=== PATIENT | female | born 1940 | race Caucasian/White ===

== ENCOUNTER 2019-07-11 09:01 | Emergency (ER) | payer MEDICARE, OTHER, SELFPAY ==
--- NOTE | ~2019-07-11 | XR_ITS ---
EXAMINATION: XR foot LT min 3V DATE: 07/11/2019 09:43 INDICATION: Inversion injury with lateral right foot pain TECHNIQUE: Dorsoplantar, two oblique and lateral views of the right foot were obtained. COMPARISON: None. FINDINGS: Nondisplaced transverse extra-articular fracture at the proximal right fifth metatarsal within 1.5 cm the proximal articular surface. No other fractures identified. Mild hallux valgus. Chronic osteotomy with resection of the distal half of the right fifth proximal phalanx. 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 Moderate-sized plantar calcaneal spur. IMPRESSION: 1. Nondisplaced extra articular fracture at the proximal metaphyseal region of the right fifth metata rsal Marx fracture. Reviewed, dictated and finalized at location A. IMPRESSION: 1. Nondisplaced extra articular fracture at the proximal metaphyseal region of the right fifth metatarsal Marx fracture.
--- NOTE | ~2019-07-11 | XR_ITS ---
EXAMINATION: XR hip LT min 2V DATE: 07/11/2019 09:43 INDICATION: Posterior left hip pain post fall TECHNIQUE: Anteroposterior , frog leg and cross-table lateral views of the left hip were obtained. COMPARISON: None. FINDINGS: On the frontal view of the left hip there is focal invagination along the medial margin of the tip of the greater trochanter but which appears to demonstrate corticated margins and this more likely resu lts from a small amount of heterotopic/enthesopathic ossification along the margins of the greater tr ochanter rather than nondisplaced avulsion fracture. No other lesions suspicious for fracture identif ied. Minimal left hip osteoarthritis with small marginal osteophyte along the acetabulum but with rel atively preserved joint space. Soft tissues are unremarkable. IMPRESSION: 1. Irregular contour along the tip of the greater trochanter the margins which appear corticated and favor heterotopic/enthesopathic ossification over nondisplaced avulsion fracture. Reviewed, dictated and finalized at location A. IMPRESSION: 1. Irregular contour along the tip of the greater trochanter the margins which appear corticated and favor heterotopic/enthesopathic ossification over nondisp laced avulsion fracture.
--- NOTE | 2019-07-11 09:10 | ED.FALL ---
HPI - Fall General Chief Complaint: Fall Stated Complaint: fall Time Seen by Provider: 07/11/19 09:20 Source: patient and RN notes reviewed Mode of arrival: ambulatory Limitations: no limitations History of Present Illness HPI Narrative: 79-year-old female presents with concern for fall. Reports yesterday her leg fell asleep after sitting in a chair for a long period of time, when she stood up the chair slipped and she fell twisting her right foot and landing on her left hip. She reports right foot pain, reports posterior hip pain. MD complaint: fall Related Data Home Medications Medication Instructions Recorded Confirmed famotidine 40 mg PO DAILY 07/11/19 07/11/19 Allergies Allergy/AdvReac Type Severity Reaction Status Date / Time No Known Allergies Allergy Verified 07/11/19 09:26 Review of Systems Review of Systems: Narrative: CONSTITUTIONAL: Denies malaise, chills, sweats, or fever. CARDIOVASCULAR: Denies chest pain, palpitations, or edema. RESPIRATORY: Denies dyspnea. SKIN: Reports bruising to the right foot, denies bruising redness to the hip or back MUSCULOSKELETAL: Reports right foot pain, posterior left hip pain NEUROLOGIC: Denies numbness, weakness. All systems reviewed & are unremarkable except as noted in HPI and below PMFSH Comments At time of signature, agree with nursing past medical, surgical, social and family history. There is no relevant family history pertinent to the presenting complaint Exam Narrative: Exam Narrative: GENERAL: Well-appearing, well-nourished, and in no acute distress. HEAD: Normocephalic, atraumatic. EYES: PERRLA, conjunctivae clear NECK: Supple. CHEST: Speaks in full sentences. No respiratory distress. HEART: Regular rate and rhythm. Normal and equal peripheral pulses. EXTREMITIES: Right foot, digits of right foot has normal strength and sensation, small lateral edema, normal range of motion. 5/5 strength with ankle and digit flexion and extension. Normal sensation with sensitivity to light touch and pain. No open wounds, no skin tenting, no devitalized tissue or atrophy, no trophic changes, mild lateral ecchymosis, no obvious deformity, alignment normal, no point tenderness, nearby joints and structures intact. Distal pulses palpable and equal bilaterally, skin warm, dry, pink. Capillary refill less than 3 seconds. Left hip has normal strength and sensation, normal range of motion. 5/5 strength with hip flexion and extension. Normal sensation with sensitivity to light touch and pain. No open wounds, no skin tenting, no devitalized tissue or atrophy, no trophic changes, no ecchymosis, no obvious deformity, alignment normal, no point tenderness, nearby joints and structures intact. Distal pulses palpable and equal bilaterally, skin warm, dry, pink. Capillary refill less than 3 seconds. SKIN: Warm, dry, no rash. NEURO: Alert and oriented x3. PSYCH: Normal mood and affect Course Course Emergency Course: Patient is aware of diagnosis, understands and agrees to treatment plan. Anticipatory guidance given. Patient agrees to follow-up as directed and is aware of reasons to seek care at the emergency department. Portions of this record may have been created with voice recognition software Vital Signs Vital signs: Vital Signs Temperature 99.1 F 07/11/19 09:14 Pulse Rate 79 07/11/19 09:14 Respiratory Rate 20 07/11/19 09:14 Blood Pressure 127/64 07/11/19 09:14 Pulse Oximetry 98 07/11/19 09:14 Temperature 99.1 F 07/11/19 09:14 Pulse Rate 79 07/11/19 09:14 Respiratory Rate 20 07/11/19 09:14 Blood Pressure 127/64 07/11/19 09:14 Pulse Oximetry 98 07/11/19 09:14 Reviewed. MDM - Fall MDM Narrative Medical decision making narrative: Patients injury and pain is consistent with musculoskeletal etiology. No signs of neurological or vascular compromise on exam. Compartments and tissues are soft without signs of compartment syndrome. Patient's posterior
[2019-07-11 09:14] VITALS: BP 127/64; PULSE 79; RESP 20; TEMP 37.3; O2SAT 98
--- NOTE | 2019-07-11 11:39 | PCDIET ---
PT DECLINES WHEELCHAIR TO RADIOLOGY
== END 2019-07-11 10:21 | disposition home or self-care (01) ==
PROVIDERS: Emergency Provider Nurse Practitioner; PCP Internal Medicine Infectious Disease
DX: S99.191A Other physeal fracture of right metatarsal, initial encounter for closed fracture (principal); W19.XXXA Unspecified fall, initial encounter
CPT/HCPCS: 73502; 73630; 99214; G0463

== ENCOUNTER 2023-09-05 09:57 | Emergency (ER) | payer MEDICARE, OTHER, SELFPAY ==
[2023-09-05 10:06] VITALS: BP 133/60; PULSE 77; RESP 16; TEMP 37.3; O2SAT 97
--- NOTE | 2023-09-05 10:12 | ED.EAR ---
HPI - Ear Problem General Chief complaint: Ear Stated complaint: Ear Pain/Sore Throat/Runny Nose Time Seen by Provider: 09/05/23 10:12 Source: patient Mode of arrival: ambulatory Limitations: no limitations History of Present Illness HPI Narrative: 83-year-old female presents with complaint of right ear pain, postnasal drainage, sore throat, clear nasal drainage for 2 days. Afebrile. Reports intermittent dry cough. No chest pain or shortness breath. Taking Mucinex to treat symptoms. All Systems reviewed and negative except as noted above. Related Data Allergies Allergy/AdvReac Type Severity Reaction Status Date / Time No Known Allergies Allergy Verified 07/11/19 09:26 Review of Systems Review of Systems: CONSTITUTIONAL: Denies fever, chills, or sweats. EYES: Denies visual changes, redness, or discharge. ENT: Reports rhinorrhea, congestion, sore throat, right ear pain CARDIOVASCULAR: Denies chest pain, palpitations, or edema. RESPIRATORY: Reports cough. Denies dyspnea. GASTROINTESTINAL: Denies abdominal pain, nausea, vomiting, or diarrhea. GENITOURINARY: Denies dysuria or hematuria. SKIN: Denies rash or itching. MUSCULOSKELETAL: Denies back pain, joint pain, or myalgia. NEUROLOGIC: Denies headache, numbness, or weakness. PSYCHIATRIC: Denies anxiety or depression. All other systems reviewed are negative, except as documented in HPI. PMFSH Comments At time of signature, agree with nursing past medical, surgical, social and family history. There is no relevant family history pertinent to the presenting complaint. Exam Narrative: GENERAL: This is a well-nourished, well-developed patient, in no apparent distress. HEAD: normocephalic, atraumatic. EYES: PERRL. Sclera clear/white. Vision is grossly intact. EARS: External ears normal, auditory canals clear and without drainage, fluid and erythema to right TM. Left TM. Without perforation bilaterally. Hearing grossly intact. NOSE: External nose normal with clear nasal drainage THROAT: Mucous membranes moist, clear postnasal drainage NECK: Neck supple, non-tender without lymphadenopathy, masses or thyromegaly. CARDIOVASCULAR: Regular rate and rhythm without murmurs, gallops, or rubs. RESPIRATORY: Clear to auscultation. Breath sounds equal bilaterally. No wheezes, rales, or rhonchi. SKIN: warm, Dry, intact with no suspicious lesions or rash, good texture and turgor. NEURO: awake, alert, and oriented to person, place and time. There were no obvious focal neurologic abnormalities. EXTREMITIES: No joint tenderness, effusion, or edema noted. Course Course Level of Care: Express Care Visit Vital Signs Vital signs: Vital Signs Temperature 37.3 C 09/05/23 10:06 Pulse Rate 77 09/05/23 10:06 Respiratory Rate 16 09/05/23 10:06 Blood Pressure 133/60 09/05/23 10:06 Pulse Oximetry 97 09/05/23 10:06 Temperature 37.3 C 09/05/23 10:06 Pulse Rate 77 09/05/23 10:06 Respiratory Rate 16 09/05/23 10:06 Blood Pressure 133/60 09/05/23 10:06 Pulse Oximetry 97 09/05/23 10:06 Reviewed Medical Decision Making MDM Narrative Medical decision making narrative: Patient is aware of diagnosis, understands and agrees to treatment plan. Anticipatory guidance given. Patient agrees to follow-up as directed and is aware of reasons to seek care at the emergency department. Portions of this record may have been created with voice recognition software Vital Signs Vital Signs: Vital Signs Temperature 37.3 C 09/05/23 10:06 Pulse Rate 77 09/05/23 10:06 Respiratory Rate 16 09/05/23 10:06 Blood Pressure 133/60 09/05/23 10:06 Pulse Oximetry 97 09/05/23 10:06 Temperature 37.3 C 09/05/23 10:06 Pulse Rate 77 09/05/23 10:06 Respiratory Rate 16 09/05/23 10:06 Blood Pressure 133/60 09/05/23 10:06 Pulse Oximetry 97 09/05/23 10:06 Discharge Plan Discharge Clinical Impression: Acute rhinosinusitis Acute se
== END 2023-09-05 10:25 | disposition home or self-care (01) ==
PROVIDERS: Emergency Provider Nurse Practitioner Family; PCP Internal Medicine Infectious Disease
DX: J01.90 Acute sinusitis, unspecified (principal); H65.01 Acute serous otitis media, right ear
CPT/HCPCS: 99213; G0463

== ENCOUNTER 2024-04-22 09:51 | Emergency (ER) | payer MEDICARE, OTHER, SELFPAY ==
[2024-04-22 10:06] VITALS: BP 131/53; PULSE 67; RESP 20; TEMP 36.4; O2SAT 98
--- NOTE | 2024-04-22 10:38 | ED.GENADULT ---
HPI - General Adult General Stated complaint: Rib injury Time Seen by Provider: 04/22/24 10:38 Source: patient Mode of arrival: ambulatory Limitations: no limitations History of Present Illness HPI narrative: 84 y/o female presented for c/o left sided rib pain for one week following an injury. States she fell when she stepped off of a ladder and onto a bedside table while hanging curtains. Rates pain 2/10, says it is better but still hurts when taking a deep breath. Takes occasional ibuprofen. Denies sob, wheezing, hemoptysis, dizziness or chest pain. Related Data Home Medications ?Medication ?Instructions ?Recorded ?Confirmed ?Last Taken ?Type aspirin 81 mg chewable tablet 81 mg PO DAILY 04/22/24 Unknown History Allergies Allergy/AdvReac Type Severity Reaction Status Date / Time No Known Allergies Allergy Verified 04/22/24 10:42 Review of Systems Review of Systems: per HPI. All systems reviewed & are unremarkable except as noted in HPI and below PMFSH Comments At time of signature, I have reviewed and agree with nursing past medical, surgical, social and family history unless otherwise noted. Please see nursing chart for further information. There is no relevant family history pertinent to the presenting complaint Exam Narrative: GENERAL: Well-appearing HEAD: Normocephalic, atraumatic. EYES: EOMI. No redness or drainage. Conjunctivae normal. ENT: Mucous membranes pink and moist. NECK: Normal AROM. CHEST: No respiratory distress. Clear to auscultation. HEART: Regular rate and rhythm. No murmur appreciated. Normal peripheral pulses. MUSCULOSKELETAL: Left lateral rib tender with palpation 6--8 area. EXTREMITIES: Normal range of motion. No edema. SKIN: Warm, dry, no rash. Capillary refill normal. Normal skin turgor. NEURO: No focal deficits. Alert and oriented x3. Gait steady. PSYCH: Normal affect. Course Course Emergency Course: Patient is aware of diagnosis, understands and agrees to treatment plan. Anticipatory guidance given. Patient agrees to follow-up as directed and is aware of reasons to seek care at the emergency department. Portions of this record may have been created with voice recognition software Level of Care: Express Care Visit Vital Signs Vital signs: Vital Signs Temperature 97.6 F 04/22/24 10:06 Pulse Rate 67 04/22/24 10:06 Respiratory Rate 20 04/22/24 10:06 Blood Pressure 131/53 L 04/22/24 10:06 Pulse Oximetry 98 04/22/24 10:06 Oxygen Delivery Room Air 04/22/24 10:06 Temperature 97.6 F 04/22/24 10:06 Pulse Rate 67 04/22/24 10:06 Respiratory Rate 20 04/22/24 10:06 Blood Pressure 131/53 L 04/22/24 10:06 Pulse Oximetry 98 04/22/24 10:06 Oxygen Delivery Room Air 04/22/24 10:06 Medical Decision Making MDM Narrative Medical decision making narrative: Discussed physical exam findings and xray. Advised supportive measures and signs/symptoms to go to the ER. Pt is appropriate for outpt treatment and f/u. Differential Diagnosis Differential Diagnosis: Rib fracture, pneumomediastinum, pneumopericardium, bronchial injury, hemothorax, pulmonary contusion, cardiac contusion, tracheal injury, pneumothorax Vital Signs Vital Signs: Vital Signs Temperature 97.6 F 04/22/24 10:06 Pulse Rate 67 04/22/24 10:06 Respiratory Rate 20 04/22/24 10:06 Blood Pressure 131/53 L 04/22/24 10:06 Pulse Oximetry 98 04/22/24 10:06 Oxygen Delivery Room Air 04/22/24 10:06 Temperature 97.6 F 04/22/24 10:06 Pulse Rate 67 04/22/24 10:06 Respiratory Rate 20 04/22/24 10:06 Blood Pressure 131/53 L 04/22/24 10:06 Pulse Oximetry 98 04/22/24 10:06 Oxygen Delivery Room Air 04/22/24 10:06 reviewed Imaging Data Radiologist's impression: Patient: Alla Cortes : 1940 MR#: [id number] Age: 84 Acct:[id number] Loc: [facility] ADM Date: 04/22/24Attending Dr: Ordering Physician: Keely Brunson APRN Date of Service: 04/22/24 Procedure(s): XR ribs LT w PA CXR Accession Number(s): [id number] cc: Keely Brunson APRN; Thierno, Mikael Connors MD~ EXAMINATION: [id number] DATE: 04/22/2024 10:40 INDICATION: One-week chest and left rib pain post fall TECHNIQUE: A frontal inspiratory view of the chest and 3 views of the left ribs were obtained. COMPARISON: None FINDINGS: Subtle focal contour irregularity along the lateral left eighth rib which could represent an age-indeterminate nondisplaced fracture. No other lesions suspicious for fracture identified. No focal airspace opacities, pulmonary edema, pleural effusion or pneumothorax. Heart size is normal with small left paracardial fat pad. Partially visualized upper abdominal endoluminal stent graft. Cholecystectomy clips in right upper quadrant. IMPRESSION: 1. Possible age-indeterminate nondisplaced fracture at the lateral left eighth rib. Correlate for point tenderness at this location. 2. No acute cardiopulmonary disease. Discharge Plan Discharge Clinical Impression: Closed rib fracture Patient Disposition: Home, Self-Care Condition: Stable Instructions: Rib Fracture (ED) Additional Instructions: Rest. Avoid pushing, pulling, lifting or anything that worsens the symptoms Tylenol 1000mg every 8 hours as needed You can alternate with ibuprofen every 8 hours Alternate ice/heat to the site. Lidocaine or salon pas pain patch or use pain cream like icy/hot or biofreeze. splint the chest with a pillow when laughing, coughing, or sneezing etc. Follow up with your primary care provider in 1 week Go to the ER for worsening symptoms or concerns Patient Language: Hebrew Prescriptions: No Action aspirin 81 mg tablet,chewable 81 mg PO DAILY Follow-up/Referrals: Thierno,Mikael Sebastian MD [Primary Care Provider] - Time of Disposition: 11:12
== END 2024-04-22 11:15 | disposition home or self-care (01) ==
PROVIDERS: Emergency Provider Nurse Practitioner Family; PCP Internal Medicine Infectious Disease
DX: S22.32XA Fracture of one rib, left side, initial encounter for closed fracture (principal); Z79.82 Long term (current) use of aspirin; W11.XXXA Fall on and from ladder, initial encounter
CPT/HCPCS: 71101; 99213; G0463